=== PATIENT | female | born 1985 | race Caucasian/White ===

== ENCOUNTER → 2019-03-17 12:49 | Outpatient (CLI) | payer OTHER, SELFPAY | PROVIDERS: Visit Provider Physician Assistant | DX: R30.0 Dysuria (principal) | CPT/HCPCS: 87077; 87086; 87186 ==

== ENCOUNTER 2019-09-03 19:57 | Emergency (ER) | payer OTHER, MEDICAID, SELFPAY ==
[2019-09-03 20:02] VITALS: BP 115/70; PULSE 85; RESP 14; TEMP 36.8; O2SAT 99; BMI 23.0
[2019-09-03] MEDS: PANTOPRAZOLE 20 MG TABLET PO (21:33)
[2019-09-03] MEDS: predniSONE 20 MG TABLET 40 MG PO (21:33)
[2019-09-03] MEDS: OXYCODONE/ACETAMINOPHEN 5/325 TABLET 1 TAB PO (21:33)
[2019-09-03] MEDS: ACETAMINOPHEN 325 MG TABLET PO (21:33)
[2019-09-03] MEDS: KETOROLAC 60 MG/2 ML VIAL 30 MG IM (21:34)
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
[2019-09-03 23:00] VITALS: BP 112/57; PULSE 74; RESP 15; O2SAT 99
== END 2019-09-03 23:00 | disposition home or self-care (01) ==
PROVIDERS: Emergency Provider Nurse Practitioner Family
DX: M54.31 Sciatica, right side (principal)
CPT/HCPCS: 81003; 81025; 96372; 99283; J1885

== ENCOUNTER 2022-03-08 07:46 | Emergency (ER) | payer OTHER, MEDICAID, SELFPAY ==
[2022-03-08] VITALS (16 sets, daily range): BP systolic 107–132; BP diastolic 55–69; PULSE 85–111; RESP 19; TEMP 38.3; O2SAT 88–96; BMI 23.7
[2022-03-08] MEDS: KETOROLAC 30 MG/ML VIAL IM (08:54)
[2022-03-08 08:55] LABS: Influenza A - CEPHEID Flu A POSITIVE (NEGATIVE); Influenza B - CEPHEID Flu B NEGATIVE (NEGATIVE); Respiratory Syncytial Virus Negative (Negative)
[2022-03-08 09:25] LABS: COVID-19 CEPHEID 4-PLEX PCR Negative (Negative)
--- NOTE | 2022-03-08 10:57 | PC.NURSE ---
1030 Mom at desk requests to see doctor, wants more pain meds for patient.
--- NOTE | 2022-03-08 10:57 | PC.NURSE ---
1000 mom at desk, wants to see doctor, wants pain meds for patient.
--- NOTE | 2022-03-08 10:58 | PC.NURSE ---
0934 mom at desk, wants to see doctor, wants pain meds for patient.
--- NOTE | 2022-03-08 12:17 | DI.RAD.S_ITS ---
PROCEDURE: XR CHEST 1V INDICATIONS: flu a, mild hypoxia TECHNIQUE: One view of the chest was acquired. COMPARISON: None. FINDINGS: Surgical changes and devices: None. Lungs and pleura: Consolidative opacity present right mid and upper lung. Patchy opacities also demonstrated at both lung bases. No pleural effusion or pneumothorax. Mediastinum: Mediastinal contours appear normal. Heart size is normal. Bones and chest wall: No suspicious bony lesions. Overlying soft tissues appear unremarkable. IMPRESSION: Consolidative opacity right mid-upper lung is suspicious for pneumonia. Additional bibasilar opacities also demonstrated, could represent multifocal infection but are nonspecific. Dictated by: Willis Rod M.D. on 03/08/2022 at 12:55 Approved by: Willis Rod M.D. on 03/08/2022 at 12:57
[2022-03-08 12:53] LABS: Add Manual Diff / Slide Review NO; Basophils Absolute Auto 0 /uL (0-100); Basophils Percent Auto 0.1 % (0-2); Eosinophils Absolute Auto 0 /uL (0-450); Hematocrit 39.7 % (36-46); Hemoglobin 13.4 g/dL (12.0-16.0); Lymphocytes Absolute Auto 200 /uL (1100-4500); Lymphocytes Percent Auto 2.4 % (25-40); Mean Corpuscular HGB Conc 33.7 % (30-36); Mean Corpuscular Hemoglobin 29.9 PG (26-34); Mean Corpuscular Volume 88.7 fL (80-100); Monocytes Absolute Auto 200 /uL (0-900); Neutrophils Absolute Auto 7600 /uL (1500-7000); Neutrophils Percent Auto 95.5 % (50-75); Platelet Count 254 X10^3/uL (150-400); Red Blood Cell Count 4.48 X10^6/uL (4.0-5.2); Red Cell Distribution Width 12.9 % (11.6-14.8); White Blood Cell Count 7.9 X10^3/uL (4.5-11.0)
[2022-03-08] MEDS: ONDANSETRON 4 MG/2 ML INJ IV (12:55)
[2022-03-08] MEDS: DEXAMETHASONE 10 MG/ML VIAL IV (12:55)
[2022-03-08] MEDS: diphenhydrAMINE 50 MG/ML VIAL 25 MG IV (12:55)
[2022-03-08] MEDS: SODIUM CHLORIDE 0.9% 1,000 ML 1000 ML IV (12:55)
[2022-03-08] MEDS: OSELTAMIVIR 75 MG CAPSULE PO (12:56)
[2022-03-08] MEDS: ACETAMINOPHEN 325 MG TABLET 975 MG PO (12:56)
[2022-03-08] MEDS: HYDROMORPHONE 0.5 MG INJ IV (12:56)
--- NOTE | 2022-03-08 13:01 | ED_ITS ---
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 Forms: Patient Portal/API <Aide Georges DO - Last Filed: 03/22/22 10:53> Cosign ED Attending Jose Manuelature Attestation: I was immediately available in the department for consultation. Documentation has been reviewed.
[2022-03-08 13:15] LABS: Alanine Aminotransferase 19 IU/L (<35); Albumin 3.9 g/dL (3.5-5.0); Alkaline Phosphatase 127 U/L (38-126); Aspartate Aminotransferase 27 IU/L (14-36); Bilirubin Total 0.7 mg/dL (0.2-1.3); Blood Urea Nitrogen 17 mg/dL (7-17); C-Reactive Protein Quant 8.5 mg/dL (<1.0); Calcium 8.4 mg/dL (8.4-10.2); Carbon Dioxide 25 mmol/L (22-32); Chloride 95 mmol/L (98-107); Estimated Glomerular Filt Rate > 60 mL/min (>60); Globulin 3.9 g/dL (1.7-4.1); Glucose 99 mg/dL (70-100); Potassium 3.8 mmol/L (3.4-5.1); Sodium 137 mmol/L (137-145); Total Protein 7.8 g/dL (6.3-8.2)
[2022-03-08 13:18] LABS: HEMOLYSIS 51 (0-50)
[2022-03-08 13:29] LABS: Procalcitonin 1.58 ng/mL (<0.5)
[2022-03-08] MEDS: AZITHROMYCIN 250 MG TABLET 500 MG PO (13:49)
[2022-03-08] MEDS: cefTRIAXone 1,000 MG in SODIUM CHLORIDE 0.9% 100 ML 200 MG IV (13:49)
--- NOTE | 2022-03-08 15:11 | PC.NURSE ---
Patient ambulated independently to bathroom while on pulse ox, saturated 93% on RA. Provider notified. Patient given IS with training by this RN, patient demonstrated successfully.
[2022-03-08 16:04] LABS: Appearance Urine UA CLEAR; Bilirubin Urine UA NEGATIVE (NEGATIVE); Color Urine UA YELLOW; Glucose Urine UA NEGATIVE (Negative); Ketones Urine UA 2+ (NEGATIVE); Leukocyte Esterase Urine UA TRACE (NEGATIVE); Nitrite Urine UA NEGATIVE (Negative); Occult Blood Urine UA TRACE-LYSED (Negative); Protein Urine UA 2+ (Negative); Specific Gravity Urine UA 1.015 (1.000-1.035); Urobilinogen Urine UA 0.2 E.U./dL (0.2)
[2022-03-08 16:05] LABS: pH Urine UA 5.5 (4.5-8.0)
[2022-03-08 16:14] LABS: Amorphous Sediment Urine 1+; Bacteria Urine Moderate (10-30); Culture Indicated Urine Specimen Cultured; RBC Urine 0-1/HPF (0-5/HPF); Squamous Epithelial Cell Urine 1-5 /HPF (0-5/HPF); WBC Urine 5-10/HPF (0-5/HPF)
== END 2022-03-08 15:32 | disposition home or self-care (01) ==
PROVIDERS: Emergency Medicine; Emergency Provider Nurse Practitioner Critical Care Medicine
DX: J10.1 Influenza due to other identified influenza virus with other respiratory manifestations (principal); J18.9 Pneumonia, unspecified organism; E86.0 Dehydration; N30.00 Acute cystitis without hematuria; R09.02 Hypoxemia; Z20.822 Contact with and (suspected) exposure to COVID-19
CPT/HCPCS: 0241U; 36415; 71045; 80053; 81001; 83605; 83735; 84145; 85025; 86140; 87086; 96365; 96372; 96375; 99284; 99285; J0696; J1100; J1170; J1200; J1885; J2405